=== PATIENT | male | born 1970 | race Caucasian/White ===

== ENCOUNTER 2020-12-02 20:23 | Inpatient (IN) | payer BC ==
[~2020-12-02] VITALS: Ht 182.9 cm; Wt 97.1 kg
[2020-12-02 22:01] LABS: HEMOGLOBIN 16.1 gm/dl (14.0-17.5); RED BLOOD COUNT 5.11 M/UL (4.20-5.50); WHITE BLOOD COUNT 6.3 K/UL (4.5-11.0)
[2020-12-02 22:17] LABS: BUN/CREATININE RATIO 9 (0-10)
[2020-12-03 01:35] LABS: HEMOGLOBIN 15.4 gm/dl (14.0-17.5); RED BLOOD COUNT 4.9 M/UL (4.20-5.50); WHITE BLOOD COUNT 6.3 K/UL (4.5-11.0)
[2020-12-03 01:56] LABS: BUN/CREATININE RATIO 8 (0-10)
[2020-12-03] MEDS ORDERED: PROVENTIL HFA6.7 GM INH (12:04)
[2020-12-03] MEDS ORDERED: CELEXA 20MG TAB20 MG PO (12:05)
[2020-12-03] MEDS ORDERED: GLYBURIDE-METF1 EACH PO (12:06)
[2020-12-03] MEDS ORDERED: PROTONIX 40 MG40 M1 PO (12:06)
[2020-12-03] MEDS ORDERED: ZYLOPRIM 300 M300 MG PO (12:07)
[2020-12-03] MEDS ORDERED: TENORMIN 50 MG50 MG PO (12:07)
[2020-12-03] MEDS ORDERED: ZOCOR 40 MG TAB40 MG PO (12:07)
[2020-12-04 05:57] LABS: RED BLOOD COUNT 5.14 M/UL (4.20-5.50)
[2020-12-04 06:23] LABS: BUN/CREATININE RATIO 21 (0-10)
[2020-12-05 06:50] LABS: HEMOGLOBIN 15.8 gm/dl (14.0-17.5); RED BLOOD COUNT 5.05 M/UL (4.20-5.50); WHITE BLOOD COUNT 4.6 K/UL (4.5-11.0)
[2020-12-05 07:14] LABS: BUN/CREATININE RATIO 22 (0-10)
--- NOTE | 2020-12-05 12:27 | NUR ---
1140- DR RIVERA ON FLOOR AT THIS TIME. NOTIFIED OF ELEVATED BLOOD GLUCOSE LEVEL ON AM LABS. NEW ORDERS NOTED.
--- NOTE | 2020-12-05 12:28 | NUR ---
1210- NOTIFIED DR RIVERA OF GLUCOSE OF 452. ORDERS TO GIVE INSULIN ORDERED.
--- NOTE | 2020-12-05 18:01 | NUR ---
1705- PATIENT BACK FROM OR AT THIS TIME. STABLE. VITAL SIGNS WITH NORMAL LIMITS. AT BEDSIDE.
[2020-12-06 06:24] LABS: HEMOGLOBIN 15.6 gm/dl (14.0-17.5); RED BLOOD COUNT 5.01 M/UL (4.20-5.50)
[2020-12-06 06:47] LABS: BUN/CREATININE RATIO 26 (0-10)
[2020-12-06] MEDS ORDERED: DECADRON6 MG PO (09:46)
== END 2020-12-06 15:24 | disposition home or self-care (01) | DRG 177 ==
LOC: ER1 20:23 → CDU 22:26 → M/S 12-03 15:41
PROVIDERS: Internal Medicine; Preventive Medicine Occupational Medicine; ADMIT Internal Medicine
PROC: 8E0ZXY6 Isolation (ICD-10-PCS; principal; 2020-12-02)
PROC: 3E0333Z Introduction of Anti-inflammatory into Peripheral Vein, Percutaneous Approach (ICD-10-PCS; 2020-12-02)
PROC: XW033E5 Introduction of Remdesivir Anti-infective into Peripheral Vein, Percutaneous Approach, New Technology Group 5 (ICD-10-PCS; 2020-12-02)
DX: U07.1 COVID-19 (principal); J12.82 Pneumonia due to coronavirus disease 2019; J96.01 Acute respiratory failure with hypoxia; E87.2 Acidosis; E11.9 Type 2 diabetes mellitus without complications; R74.01 Elevation of levels of liver transaminase levels; I10 Essential (primary) hypertension; Z90.49 Acquired absence of other specified parts of digestive tract; Z90.89 Acquired absence of other organs; Z79.899 Other long term (current) drug therapy; Z79.84 Long term (current) use of oral hypoglycemic drugs
CPT/HCPCS: 36415; 36600; 71045; 80048; 80053; 82803; 82962; 83036; 83605; 83690; 83735; 83880; 85025; 85027; 85379; 85652; 86140; 93005; 94640; 94664; 94760; 96374; 99285; J1100; J1650; J1956; J7030; U0002